=== PATIENT | male | born 2000 | race Caucasian/White ===

== ENCOUNTER 2023-04-30 12:03 | Emergency (ER) | payer BC ==
[~2023-04-30] VITALS: Ht 182.9 cm; Wt 81.6 kg
[2023-04-30] MEDS ORDERED: ONDANSETRON HCL/PF 4 MG/2 ML VIAL ONE (12:29)
[2023-04-30] MEDS ORDERED: KETOROLAC TROMETHAMINE 15 MG/ML VIAL ONE (12:29)
[2023-04-30 12:30] LABS: BASOPHILS % (AUTO) 0.3 % (0.0-2.0); EOSINOPHILS # (AUTO) 0.1 K/uL (0.0-0.7); EOSINOPHILS % (AUTO) 0.9 % (0.0-6.0); HEMATOCRIT 45 % (39-51); HEMOGLOBIN 15.6 g/dL (13.5-17.5); LYMPHOCYTES # (AUTO) 1.8 K/uL (0.8-4.8); MEAN CORPUSCULAR HEMOGLOBIN 29 PG (26.0-33.0); MEAN CORPUSCULAR HGB CONC 35 g/dl (31.0-36.0); MEAN CORPUSCULAR VOLUME 82 fL (80-96); MONOCYTES # (AUTO) 0.5 K/uL (0.1-1.30); MONOCYTES % (AUTO) 8.4 % (2.0-12.0); NEUTROPHILS # (AUTO) 3.4 K/uL (1.8-8.9); NEUTROPHILS % (AUTO) 58.4 % (43.0-81.0); PLATELET COUNT (AUTO) 214 K/uL (150-450); RED BLOOD CELL COUNT(AUTO) 5.47 MIL/uL (4.5-6.0); RED CELL DISTRIBUTION WIDTH 12.9 % (11.5-15.0); WHITE BLOOD COUNT (AUTO) 5.8 K/uL (4.3-11.0)
[2023-04-30] MEDS: IV NS 0.9% 1,000 ML BAG IV ONE (12:35)
[2023-04-30] MEDS: KETOROLAC TROMETHAMINE 15 MG/ML VIAL IV ONE (12:35)
[2023-04-30] MEDS: ONDANSETRON HCL/PF 4 MG/2 ML VIAL IVP ONE (12:35)
[2023-04-30 12:42] LABS: CALCIUM, SERUM 9.5 mg/dL (8.5-10.1); CREATININE 1.1 mg/dL (0.6-1.3); POTASSIUM 4.1 mmol/L (3.5-5.1)
[2023-04-30 12:47] LABS: ALBUMIN 4.6 g/dL (3.4-5.0); BILIRUBIN,DIRECT 0.3 mg/dL (0.0-0.2); BILIRUBIN,TOTAL 2.2 mg/dL (0.2-1.0); TOTAL PROTEIN, SERUM 8.5 g/dL (6.4-8.2)
[2023-04-30] MEDS ORDERED: PANTOPRAZOLE 40 MG VIAL ONE (13:13)
[2023-04-30] MEDS ORDERED: LIDOCAINE VISCOUS 2% UD 15 ML UDC ONE (13:13)
[2023-04-30] MEDS: PANTOPRAZOLE 40 MG VIAL IV ONE (13:23)
[2023-04-30] MEDS: MAG HYDROX/AL HYDROX/SIMETH 30 ML UDC PO ONE (13:24)
[2023-04-30] MEDS: LIDOCAINE VISCOUS 2% UD 15 ML UDC MM ONE (13:24)
[2023-04-30] MEDS ORDERED: DICY10CA37 PO (14:39)
[2023-04-30] MEDS ORDERED: PANT20TA2 PO (14:39)
[2023-04-30] MEDS ORDERED: MAG355OR18 PO (14:39)
[2023-04-30] MEDS ORDERED: ONDA4TAB11 PO (14:39)
[2023-04-30 14:48] VITALS: BP 132/70; TEMP 98.5; O2SAT 100
== END 2023-04-30 14:48 | disposition home or self-care (01) ==
LOC: ER 12:12
DX: K21.9 Gastro-esophageal reflux disease without esophagitis (principal); R11.0 Nausea
CPT/HCPCS: 99285; 96374; 76705; 96361; 96375; 85025; 80048; 83690; 80076; J2405; J7030; C9113; J1885; 36415

== ENCOUNTER 2023-06-04 01:35 | Emergency (ER) | payer BC ==
[~2023-06-04] VITALS: Ht 182.9 cm; Wt 78.5 kg
[~2023-06-04 01:35] MED LIST: DICY10CA37 PO; MAG355OR18 PO; ONDA4TAB11 PO; PANT20TA2 PO
[2023-06-04 02:05] VITALS: TEMP 97.9
[2023-06-04] MEDS ORDERED: FAMOTIDINE/PF INJ 20 MG/2 ML VIAL IV ONE (02:32)
[2023-06-04] MEDS ORDERED: METOCLOPRAMIDE HCL 10 MG/2 ML VIAL ONE (02:32)
[2023-06-04 02:45] LABS: BASOPHILS % (AUTO) 0.4 % (0.0-2.0); EOSINOPHILS % (AUTO) 0.3 % (0.0-6.0); HEMATOCRIT 39 % (39-51); HEMOGLOBIN 13.5 g/dL (13.5-17.5); LYMPHOCYTES # (AUTO) 1.3 K/uL (0.8-4.8); LYMPHOCYTES % (AUTO) 16.4 % (20.0-44.0); MEAN CORPUSCULAR HEMOGLOBIN 29 PG (26.0-33.0); MEAN CORPUSCULAR HGB CONC 34 g/dl (31.0-36.0); MEAN CORPUSCULAR VOLUME 84 fL (80-96); MONOCYTES # (AUTO) 0.3 K/uL (0.1-1.30); MONOCYTES % (AUTO) 3.9 % (2.0-12.0); NEUTROPHILS # (AUTO) 6.3 K/uL (1.8-8.9); PLATELET COUNT (AUTO) 191 K/uL (150-450); RED BLOOD CELL COUNT(AUTO) 4.68 MIL/uL (4.5-6.0); RED CELL DISTRIBUTION WIDTH 13.1 % (11.5-15.0)
[2023-06-04] MEDS: METOCLOPRAMIDE HCL 10 MG/2 ML VIAL IV ONE (02:51)
[2023-06-04] MEDS: IV NS 0.9% 1,000 ML BAG IV ONE (02:51)
[2023-06-04] MEDS: FAMOTIDINE/PF INJ 20 MG/2 ML VIAL IV ONE (02:51)
[2023-06-04 03:02] LABS: ALBUMIN 4.2 g/dL (3.4-5.0); BILIRUBIN,DIRECT 0.2 mg/dL (0.0-0.2); BILIRUBIN,TOTAL 0.8 mg/dL (0.2-1.0); CREATININE 1.1 mg/dL (0.6-1.3); POTASSIUM 4.2 mmol/L (3.5-5.1); TOTAL PROTEIN, SERUM 7.3 g/dL (6.4-8.2)
[2023-06-04] MEDS ORDERED: HALOPERIDOL LACTATE INJ 5 MG/ML VIAL ONE (03:30)
[2023-06-04] MEDS: HALOPERIDOL LACTATE INJ 5 MG/ML VIAL IM ONE (03:34)
[2023-06-04 06:01] VITALS: BP 129/74; O2SAT 99
== END 2023-06-04 06:01 | disposition home or self-care (01) ==
LOC: ER 01:37
DX: K21.9 Gastro-esophageal reflux disease without esophagitis (principal); K29.70 Gastritis, unspecified, without bleeding; R11.10 Vomiting, unspecified; F12.90 Cannabis use, unspecified, uncomplicated; Z79.899 Other long term (current) drug therapy
CPT/HCPCS: 99284; 96374; 96361; 96375; 85025; 80048; 83690; 80076; 36415; 96372; J1630; J3490; J2765; J7030

== ENCOUNTER 2024-06-26 04:39 | Emergency (ER) | payer BC, MEDICAID ==
[~2024-06-26] VITALS: Ht 182.9 cm; Wt 79.4 kg
[2024-06-26 05:28] LABS: BASOPHILS # (AUTO) 0.1 K/uL (0.0-0.2); BASOPHILS % (AUTO) 0.6 % (0.0-2.0); EOSINOPHILS # (AUTO) 0.1 K/uL (0.0-0.7); EOSINOPHILS % (AUTO) 0.6 % (0.0-6.0); HEMATOCRIT 40 % (39-51); HEMOGLOBIN 14.3 g/dL (13.5-17.5); LYMPHOCYTES # (AUTO) 2.5 K/uL (0.8-4.8); LYMPHOCYTES % (AUTO) 23.8 % (20.0-44.0); MEAN CORPUSCULAR HEMOGLOBIN 29 PG (26.0-33.0); MEAN CORPUSCULAR HGB CONC 35 g/dl (31.0-36.0); MEAN CORPUSCULAR VOLUME 83 fL (80-96); MONOCYTES # (AUTO) 0.8 K/uL (0.1-1.30); MONOCYTES % (AUTO) 7.6 % (2.0-12.0); NEUTROPHILS # (AUTO) 7.1 K/uL (1.8-8.9); NEUTROPHILS % (AUTO) 67.4 % (43.0-81.0); PLATELET COUNT (AUTO) 203 K/uL (150-450); RED BLOOD CELL COUNT(AUTO) 4.89 MIL/uL (4.5-6.0); RED CELL DISTRIBUTION WIDTH 12.9 % (11.5-15.0); WHITE BLOOD COUNT (AUTO) 10.6 K/uL (4.3-11.0)
[2024-06-26 05:39] LABS: CALCIUM, SERUM 9.5 mg/dL (8.5-10.1); CREATININE 1.2 mg/dL (0.6-1.3); POTASSIUM 4.1 mmol/L (3.5-5.1)
[2024-06-26 06:09] VITALS: BP 115/62; TEMP 97.9; O2SAT 99
== END 2024-06-26 06:09 | disposition home or self-care (01) ==
LOC: ER 04:42
DX: R06.02 Shortness of breath (principal); F17.290 Nicotine dependence, other tobacco product, uncomplicated; Z79.899 Other long term (current) drug therapy
CPT/HCPCS: 36415; 71045-TC; 80048-TC; 85025-TC; 85378-TC